=== PATIENT | male | born 1965 | race African-American/Black ===

== ENCOUNTER 2021-10-10 08:46 | Emergency (ER) | payer SELFPAY ==
[~2021-10-10] VITALS: Ht 177.8 cm; Wt 80.0 kg
[2021-10-10 08:50] VITALS: BP 135/70
== END 2021-10-10 09:50 | disposition home or self-care (01) ==
LOC: ER 09:06
DX: R41.0 Disorientation, unspecified (principal)
CPT/HCPCS: 93005; 99283